=== PATIENT | male | born 1985 | race Caucasian/White ===

== ENCOUNTER 2021-08-03 07:57 | Emergency (ER) | payer OTHER ==
[~2021-08-03] VITALS: Ht 190.5 cm; Wt 110.2 kg
--- NOTE | 2021-08-03 08:27 | PHYS DOC ---
Past History Past Medical History: No Pertinent History Adult General Chief Complaint Chief Complaint: FLU SYMPTOM HPI HPI Patient is a 36year old male who presents with complaint of fever, cough, and body aches. States that he awoke this morning with his symptoms. Denies any significant past medical history. No known sick contacts. Patient is unvaccinated for COVID-19. States that his cough has been nonproductive. States he took ibuprofen last night over 6 hours ago. Denies chest pain, abdominal pain, vomiting, or diarrhea. Review of Systems Review of Systems Constitutional: Fever, chills, body aches [] Eyes: Denies change in visual acuity, redness, or eye pain [] HENT: Rhinorrhea, sore throat, congestion [] Respiratory: Cough, denies shortness of breath [] Cardiovascular: Denies chest pain or edema [] GI: Denies abdominal pain, nausea, vomiting, bloody stools or diarrhea [] : Denies dysuria or hematuria [] Musculoskeletal: Myalgias, denies joint pain or swelling [] Integument: Denies rash or skin lesions [] Neurologic: Headache, denies focal weakness or sensory changes [] All other systems were reviewed and found to be within normal limits, except as documented in this note. Allergies Allergies No known drug allergies Physical Exam Physical Exam Constitutional: Alert, febrile, appears ill. [] HENT: Normocephalic, atraumatic, bilateral external ears normal, oropharynx erythematous, no oral exudates, clear rhinorrhea and nasal congestion present. [] Eyes: PERRLA, EOMI, conjunctiva normal, no discharge. [] Neck: Normal range of motion, anterior cervical lymphadenopathy present, supple, no stridor. [] Cardiovascular:Tachycardia, regular rhythm, no murmur [] Lungs & Thorax: Bilateral breath sounds clear to auscultation [] Abdomen: Bowel sounds normal, soft, no tenderness, no masses, no pulsatile masses. [] Skin: Warm, dry, no erythema, no rash. [] Back: No tenderness, no CVA tenderness. [] Extremities: No tenderness, no cyanosis, no clubbing, ROM intact, no edema. [] Neurologic: Alert and oriented X 3, normal motor function, normal sensory function, no focal deficits noted. [] Current Patient Data Vital Signs Vital Signs Date Time Temp Pulse Resp B/P (MAP) Pulse Ox O2 Delivery O2 Flow Rate FiO2 08/03/21 08:00 100.2 101 20 154/89 (110) 100 Room Air Lab Results Laboratory Tests Test 08/03/21 08:22 08/03/21 08:30 Influenza Type A (Rapid) Negative Influenza Type B (Rapid) Negative SARS-CoV-2 Antigen (Rapid) Negative Group A Streptococcus Rapid Negative EKG EKG Not performed [] Radiology/Procedures Radiology/Procedures 2 view chest x-ray interpreted by me: No infiltrate, no effusion, normal cardiac silhouette [] Heart Score C/O Chest Pain: No Risk Factors: Risk Factors: DM, Current or recent (<one month) smoker, HTN, HLP, family history of CAD, obesity. Risk Scores: Risk Factors: DM, Current or recent (<one month) smoker, HTN, HLP, family hist ory of CAD, obesity. Course & Med Decision Making Course & Med Decision Making Pertinent Labs and Imaging studies reviewed. (See chart for details) COVID-19, influenza, and strep testing negative in the emergency department. I remain suspicious for possible COVID-19 infection. Additionally patient's symptoms may be due to general viral syndrome. Treated with ibuprofen and Tylenol in the emergency department. Recommended home quarantine over the next 48 hours and repeat COVID testing after that time. If testing negative and patient afebrile, patient may return to work but continue masking until 10 days from onset of symptoms. Recommend follow-up with primary doctor in 3 to 5 days for reevaluation and return to the emergency department for any worsening symptoms. Patient voiced understanding and in agreement with treatment plan. [] Dragon Disclaimer Dragon Disclaimer This electronic medical record was generated, in whole or in part, using a voice recognition dictation system. Departure Departure: Impression: Primary Impression: Viral syndrome Additional Impression: Lab test negative for COVID-19 virus Disposition: HOME / SELF CARE / HOMELESS Condition: STABLE Referrals: SOPHY DREW (PCP) Patient Instructions: Viral Syndrome Additional Instructions: Follow-up with your primary care provider in the next 3 days for reevaluation. You will need repeat COVID-19 testing at that time. If negative and you are fever free for at least 24 hours and acute symptoms have resolved, you may return to work but continue to wear a mask while at work at all times until August 13, 2021 when you may then remove the mask. Return to the emergency department for any worsening symptoms. Problem Qualifiers DAWOOD PATTERSON MD August 03, 2021 08:27
[2021-08-03 08:42] LABS: INFLUENZA A PATIENT NEGATIVE (NEGATIVE); INFLUENZA B PATIENT NEGATIVE (NEGATIVE)
[2021-08-03 09:30] VITALS: BP 147/80
[2021-08-03] MEDS ORDERED: ACETAMINOPHEN 325 MG TABLET PO ONE (09:45)
[2021-08-03] MEDS ORDERED: IBUPROFEN 600 MG TABLET. PO ONE (09:45)
--- NOTE | 2021-08-03 09:54 | RAD ---
XR CHEST 2V History: Cough, fever Comparison: None. Technique: PA and lateral chest radiographs. Findings: The lungs are adequately and symmetrically inflated. There are subtle left lower lung hazy opacificat ion. No pleural effusion or pneumothorax. Cardiomediastinal silhouette and pulmonary vasculature are within normal limits. Soft tissues and osseous structures are unremarkable. Impression: 1. Subtle left lower lung airspace opacity may represent infection in appropriate clinical setting. Recommend repeat radiographs in 6-8 weeks to ensure resolution. Electronically signed by: Maxim Gregory MD (08/03/2021 9:51 AM) [id number]
[2021-08-04] MEDS ORDERED: DOXY100T PO (09:14)
== END 2021-08-03 09:45 | disposition home or self-care (01) ==
LOC: ER 07:57
DX: B34.9 Viral infection, unspecified (principal); Z20.822 Contact with and (suspected) exposure to COVID-19
CPT/HCPCS: 71046; 87070; 87428; 87880; 99284-25